=== PATIENT | male | born 1995 | race African-American/Black ===

== ENCOUNTER 2020-06-19 16:40 | Emergency (ER) | payer MEDICAID ==
[~2020-06-19] VITALS: Ht 177.8 cm; Wt 100.0 kg
[2020-06-19] MEDS ORDERED: iohexol 300mg/ml 100ml inj. ONE (17:34)
[2020-06-19] MEDS ORDERED: morphine 10mg/ml inj. IV ONE (17:35)
[2020-06-19] MEDS ORDERED: ketorolac tromethamine 15mg/ml inj. IV ONE (17:35)
[2020-06-19] MEDS ORDERED: normal saline 1000ML IV soln IVB ONE ×2 (17:40)
[2020-06-19 17:47] LABS: BASOPHILS # (AUTO) 0.1 X10'3 (0-0.2); BASOPHILS % (AUTO) 0.2 % (0-1); EOSINOPHILS # (AUTO) 0.1 X10'3 (0-0.9); EOSINOPHILS % (AUTO) 0.2 % (0-6); HEMATOCRIT 41.9 % (42.0-52.0); HEMOGLOBIN 14.3 g/dl (14.0-17.9); LYMPHOCYTES # (AUTO) 1.4 X10'3 (1.1-4.8); LYMPHOCYTES % (AUTO) 3.9 % (21-51); MEAN CORPUSCULAR HEMOGLOBIN 29.9 PG (27.0-31.0); MEAN CORPUSCULAR VOLUME 87.9 FL (78-98); MEAN PLATELET VOLUME 6.9 FL (7.4-10.4); MONOCYTES % (AUTO) 5.6 % (2-12); NEUTROPHILS # (AUTO) 32.4 X10'3 (1.8-7.7); NEUTROPHILS % (AUTO) 90.1 % (42-75); PLATELET COUNT 465 X10'3 (140-440); RED BLOOD COUNT 4.77 X10'6 (4.70-6.10); RED CELL DISTRIBUTION WIDTH 14.6 % (11.5-14.5)
[2020-06-19 17:56] LABS: ALANINE AMINOTRANSFERASE 34 U/L (12-78); ALBUMIN 2.5 G/DL (3.4-5.0); ALBUMIN/GLOBULIN RATIO 0.4 (1.1-1.5); ALKALINE PHOSPHATASE 231 IU/L (46-116); ANION GAP 14 (8-16); ASPARTATE AMINO TRANSFERASE 36 U/L (10-37); BILIRUBIN,TOTAL 0.8 MG/DL (0.1-1.0); BLOOD UREA NITROGEN 55 MG/DL (7-18); BUN/CREATININE RATIO 23.1 (5.4-32.0); CALCIUM 9.8 MG/DL (8.5-10.1); CHLORIDE 92 MMOL/L (99-107); CREATININE 2.38 MG/DL (0.60-1.10); GLUCOSE 408 MG/DL (70-104); POTASSIUM 4.7 MMOL/L (3.5-5.1); SODIUM 126 MMOL/L (135-145); TOTAL CARBON DIOXIDE 19.6 MMOL/L (24-32); TOTAL PROTEIN 8.8 G/DL (6.4-8.2); eGFR 33 ML/MIN
[2020-06-19] MEDS ORDERED: piperacillin/tazo 4.5gm/100ml 100 ML IV STA (18:07)
[2020-06-19 18:09] LABS: TOTAL CELLS COUNTED 100
[2020-06-19 18:11] LABS: BURR CELLS 1+; PLATELET ESTIMATE INCREASED; TOXIC GRANULATION 2+; TOXIC VACUOLATION 1+
[2020-06-19] MEDS ORDERED: vancomycin/NS 1 GM ADD-VANTAGE 250 ML X 1 DOSE IV ONE (18:20)
[2020-06-19] MEDS ORDERED: vancomycin/NS 1 GM ADD-VANTAGE 250 ML X 1 DOSE IV SCH (19:00)
[2020-06-19 20:19] LABS: CLARITY,URINE SLIGHTLY CLOUDY (Clear); COLOR,URINE YELLOW (Yellow); GLUCOSE, URINE 100 mg/dl (Neg); KETONES,URINE NEGATIVE (Neg); LEUKOCYTE ESTERASE ,URINE NEGATIVE (Neg); NITRITES, URINE NEGATIVE (Neg); OCCULT BLOOD,URINE TRACE-LYSED (Neg); PH,URINE 5.5 (4.8-8.0); PROTEIN,URINE TRACE mg/dl (Neg); UROBILINOGEN,URINE 0.2 E.U/dL (0.2-1.0)
[2020-06-19 20:23] LABS: UA COLLECTION TYPE VOIDED
[2020-06-19 20:28] LABS: RBC,URINE 0-2 /HPF (0-2); WBC,URINE 0-4 /HPF (0-4)
[2020-06-19 20:29] LABS: AMORPHOUS URATES 2+; BACTERIA,URINE NONE SEEN /HPF (Neg); COARSE GRANULAR CAST 0-3 /LPF (NEGATIVE); MUCUS STRANDS NONE SEEN /LPF (Neg); SQUAMOUS EPITHELIAL CELL,UR FEW /LPF (FEW)
--- NOTE | 2020-06-19 21:18 | NUR ---
Confirmed with Ivett in pharmacy dose of 2G Vancomycin w/ pt decreased kidney function.
--- NOTE | 2020-06-19 21:38 | NUR ---
Pt swabbed for rapid covid test.
[2020-06-19] MEDS ORDERED: morphine 4 MG/ML inj SYRINge IV ONE ×2 (21:45→23:45)
[2020-06-19] MEDS ORDERED: ondansetron/PF 4mg/2ml inj IV ONE (21:45)
[2020-06-19 22:10] VITALS: BP 127/79
--- NOTE | 2020-06-19 23:09 | NUR ---
Pt has been accepted at [facility], room 934 bed 1. Accepting MD is Dr. Metz. Report to be called to , when pt leaves. Transfer center requests a call w/ transportation information and ETA. All imaging is to be on a disc and copies of medical records to go with patient.
--- NOTE | 2020-06-20 00:23 | NUR ---
number to call report in previous note incorrect. Correct number [phone]
--- NOTE | 2020-06-20 00:31 | NUR ---
Report called to [facility]. Pt picked up by [facility] for helicopter transport
== END 2020-06-20 00:37 | disposition short-term general hospital (02) ==
LOC: ER 16:40
DX: L02.414 Cutaneous abscess of left upper limb (principal); A41.9 Sepsis, unspecified organism; F11.10 Opioid abuse, uncomplicated; F17.200 Nicotine dependence, unspecified, uncomplicated
CPT/HCPCS: 36415; 71045; 73201; 80053; 81001; 82948; 83605; 84145; 85007; 85025; 87040; 87635; 96365; 96366; 96367; 96368; 96375; 96376; 99291; C9803; J1885; J2270; J2405; J2543; J3370; J7030; Q9967; 96361